=== PATIENT | male | born 1985 | race Caucasian/White ===

== ENCOUNTER 2018-05-24 08:44 | Emergency (ER) | payer SELFPAY ==
[2018-05-24] MEDS ORDERED: LIDOCAINE 1% MPF 5 ML VIAL ONE (09:05)
[2018-05-24] MEDS ORDERED: LIDOCAINE 1% W/EPI 1:100,000 MDV 50 ML VIAL ONE (09:08)
--- NOTE | 2018-05-24 09:36 | ER ---
Nurse's Notes [facility] Name: Jhonny Gore Age: 32 yrs Sex: Male : 1985 Arrival Date: 05/24/2018 Time: 08:46 Bed 14 Private MD: None, None Diagnosis: Laceration without foreign body of right forearm Presentation: 05/24 09:00 Presenting complaint: Patient states: cut his arm on a window last night around 930 pm, iw laceration noted to RFA, blood clot in place. Transition of care: patient was not received from another setting of care. Complicating Factors: There are no complicating factors for this patient. Onset of symptoms was May 23, 2018. Risk Assessment: Do you want to hurt yourself or someone else? Patient reports no desire to harm self or others. Initial Sepsis Screen: Does the patient meet any 2 criteria? No. Patient's initial sepsis screen is negative. Does the patient have a suspected source of infection? No. Patient's initial sepsis screen is negative. Care prior to arrival: None. 09:00 Method Of Arrival: Ambulatory iw 09:00 Acuity: OTF 4 iw Historical: - Allergies: 09:03 No Known Allergies; iw - Home Meds: 09:03 None [Active]; iw - PMHx: 09:03 None; iw - PSHx: 09:03 None; iw - Immunization history:: Last tetanus immunization: up to date. - Ebola Screening: : Patient negative for fever greater than or equal to 101.5 degrees Fahrenheit, and additional compatible Ebola Virus Disease symptoms Patient denies exposure to infectious person Patient denies travel to an Ebola-affected area in the 21 days before illness onset No symptoms or risks identified at this time. - Social history:: Smoking status: Patient uses tobacco products, smokes one pack cigarettes per day. Screenin:00 Abuse screen: Denies threats or abuse. Nutritional screening: No deficits noted. jb4 Tuberculosis screening: No symptoms or risk factors identified. Fall Risk None identified. Assessment: 09:00 General: Appears in no apparent distress. uncomfortable, Behavior is calm, cooperative, jb4 appropriate for age. Pain: Complains of pain in dorsal aspect of right forearm Pain does not radiate. Pain currently is 2 out of 10 on a pain scale. at worst was 8 out of 10 on a pain scale. Quality of pain is described as throbbing, Pain began 1 day ago. Neuro: Level of Consciousness is awake, alert, obeys commands, Oriented to person, place, time, situation. Cardiovascular: Capillary refill < 3 seconds in right fingers Patient's skin is warm and dry. Respiratory: Airway is patent Respiratory effort is even, unlabored, Respiratory pattern is regular, symmetrical. GI: No signs and/or symptoms were reported involving the gastrointestinal system. : No signs and/or symptoms were reported regarding the genitourinary system. EENT: No signs and/or symptoms were reported regarding the EENT system. Derm: Skin is pink, warm \T\ dry. Musculoskeletal: Circulation, motion, and sensation intact. Capillary refill < 3 seconds, in right. Injury Description: Laceration sustained to dorsal aspect of right forearm is 0.5 to 2.5 cm long, bleeding profusely. 09:30 Reassessment: Patient appears in no apparent distress at this time. Patient and/or jb4 family updated on plan of care and expected duration. Pain level reassessed. Patient is alert, oriented x 3, equal unlabored respirations, skin warm/dry/pink. Pt informed of need for sutures. Pt refused. provider notified. 10:36 Reassessment: pt was noted to be standing in ER driveway, bleeding, pt encouraged to iw have laceration repaired, pt now agrees. 10:50 Reassessment: pt walked out of ER room 12, actively bleeding, pt encouraged to come iw back inside to allow GLOVE STITCHER to suture arm, pt agrees. 11:00 Reassessment: Pt returned to ED, and agreed for wound closure. jb4 Vital Signs: 09:03 BP 142 / 98; Pulse 109; Resp 16; Temp 98.3; Pulse Ox 100% on R/A; Weight 68.04 kg; iw Height 6 ft. 1 in. (185.42 cm); Pain 6/10; 09:45 BP 137 / 98; Pulse 65; Resp 18; Pulse Ox 100% on R/A; jb4 11:17 BP 132 / 97; Pulse 102; Resp 18; Pulse Ox 100% on R/A; jb4 09:03 Body Mass Index 19.79 (68.04 kg, 185.42 cm) iw ED Course: 08:46 Patient arrived in ED. mr 08:46 None, None is Private Physician. mr 08:47 Chanel Hill [facility]C [facility] kb 08:47 Dennis Shaver MD is Attending Physician. kb 08:59 Alvaro Dias, RN is Primary Nurse. jb4 09:00 Patient has correct armband on for positive identification. Bed in low position. Side jb4 rails up X 1. Pulse ox on. NIBP on. 09:02 Triage completed. iw 09:03 Arm band placed on. iw 09:45 No provider procedures requiring assistance completed. Patient did not have IV access jb4 during this emergency room visit. 10:36 Primary Nurse role handed off by Alvaro Dias, RN iw 10:36 Chandni Mccormick, RN is Primary Nurse. iw 11:30 Assist provider with laceration repair on dorsal aspect of right forearm that was iw between 2.6 to 7.5 cm using giorgio. Set up tray. Performed by Chanel HAYNES Dressed with 4X4s, Julia, Patient tolerated well. Administered Medications: 09:33 Not Given (Patient Refused): Lidocaine (1 %) 1 vials 20 ml Infiltration once; to bedsidekb Outcome: 09:35 Discharge ordered by MD. kb 09:45 Discharged to home ambulatory. jb4 09:45 Condition: stable 09:45 Discharge instructions given to patient, Instructed on discharge instructions, follow up and referral plans. wound care, Demonstrated understanding of instructions, follow-up care, wound care. 09:51 Patient left the ED. jb4 11:30 Discharged to home ambulatory. iw 11:30 Condition: improved 11:30 Discharge instructions given to patient, Instructed on discharge instructions, follow up and referral plans. wound care, Demonstrated understanding of instructions, follow-up care, wound care. 11:31 Patient left the ED. iw Signatures: Chanel Hill FNP-C FNP-Don CastilloaSusan mr Chandni Mccormick, RN RN iw Alvaor Dias, RN RN jb4 Corrections: (The following items were deleted from the chart) 09:15 09:11 General: Appears jb4 jb4 09:48 09:00 Injury Description: Laceration sustained to dorsal aspect of right forearm is 0.5 jb4 to 2.5 cm long, bleeding moderately, jb4
--- NOTE | 2018-05-24 09:36 | EDPHYS ---
Physician Documentation [facility] Name: Jhonny Gore Age: 32 yrs Sex: Male : 1985 Arrival Date: 05/24/2018 Time: 08:46 Bed 14 Private MD: None, None ED Physician Dennis Shaver HPI: 05/24 09:25 This 32 yrs old Male presents to ER via Ambulatory with complaints of kb Laceration To Arm. 09:25 The patient has a laceration related to: cut on broken glass from window occurred at kb home, and there are no complicating factors. The injury was accidental. The laceration(s) is(are) located on the dorsal aspect of right forearm. Onset: The symptoms/episode began/occurred last night. Associated signs and symptoms: Pertinent positives: heavy bleeding, Pertinent negatives: deformity, dizziness, loss of consciousness, numbness distal to injury, suspected foreign body. The patient has not experienced similar symptoms in the past. The patient has not recently seen a physician. Historical: - Allergies: 09:03 No Known Allergies; iw - Home Meds: 09:03 None [Active]; iw - PMHx: 09:03 None; iw - PSHx: 09:03 None; iw - Immunization history:: Last tetanus immunization: up to date. - Ebola Screening: : Patient negative for fever greater than or equal to 101.5 degrees Fahrenheit, and additional compatible Ebola Virus Disease symptoms Patient denies exposure to infectious person Patient denies travel to an Ebola-affected area in the 21 days before illness onset No symptoms or risks identified at this time. - Social history:: Smoking status: Patient uses tobacco products, smokes one pack cigarettes per day. ROS: 09:26 Constitutional: Negative for fever, chills, and weight loss, Cardiovascular: Negative kb for chest pain, palpitations, and edema, Respiratory: Negative for shortness of breath, cough, wheezing, and pleuritic chest pain, Abdomen/GI: Negative for abdominal pain, nausea, vomiting, diarrhea, and constipation, MS/Extremity: Negative for injury and deformity, Neuro: Negative for headache, weakness, numbness, tingling, and seizure. 09:26 Skin: Positive for laceration(s), of the dorsal aspect of right forearm. Exam: 09:27 Constitutional: This is a well developed, well nourished patient who is awake, alert, kb and in no acute distress. Head/Face: Normocephalic, atraumatic. Chest/axilla: Normal chest wall appearance and motion. Nontender with no deformity. No lesions are appreciated. Cardiovascular: Regular rate and rhythm with a normal S1 and S2. No gallops, murmurs, or rubs. Normal PMI, no JVD. No pulse deficits. Respiratory: Lungs have equal breath sounds bilaterally, clear to auscultation and percussion. No rales, rhonchi or wheezes noted. No increased work of breathing, no retractions or nasal flaring. Abdomen/GI: Soft, non-tender, with normal bowel sounds. No distension or tympany. No guarding or rebound. No evidence of tenderness throughout. MS/ Extremity: Pulses equal, no cyanosis. Neurovascular intact. Full, normal range of motion. Neuro: Awake and alert, GCS 15, oriented to person, place, time, and situation. Cranial nerves II-XII grossly intact. Motor strength 5/5 in all extremities. Sensory grossly intact. Cerebellar exam normal. Normal gait. 09:27 Skin: injury, laceration(s), the wound is approximately 4 cm(s), of the dorsal aspect of right forearm, that can be described as clean, no foreign body, linear, without bleeding, bleeding controlled, large clot noted . Vital Signs: 09:03 BP 142 / 98; Pulse 109; Resp 16; Temp 98.3; Pulse Ox 100% on R/A; Weight 68.04 kg; iw Height 6 ft. 1 in. (185.42 cm); Pain 6/10; 09:45 BP 137 / 98; Pulse 65; Resp 18; Pulse Ox 100% on R/A; jb4 11:17 BP 132 / 97; Pulse 102; Resp 18; Pulse Ox 100% on R/A; jb4 09:03 Body Mass Index 19.79 (68.04 kg, 185.42 cm) iw Laceration: 11:21 Wound Repair of 4cm ( 1.6in ) subcutaneous laceration to dorsal aspect of right kb forearm. Linear shaped.. Distal neuro/vascular/tendon intact. Anesthesia: Wound infiltrated with 4 mls of 1% lidocaine w/ Epi. Wound prep: Extensive cleansing with betadine by me, Wound irrigation with saline by me. Skin closed with 5 gumaro Gumaro using staple gun. Dressed with Neosporin, 4x4's. Patient tolerated well. MDM: 08:47 Patient medically screened. kb 09:26 Data reviewed: vital signs, nurses notes. Data interpreted: Pulse oximetry: on room air kb is 100 %. Interpretation: normal. 09:33 Counseling: I had a detailed discussion with the patient and/or guardian regarding: the kb historical points, exam findings, and any diagnostic results supporting the discharge/admit diagnosis, the need for outpatient follow up, a family practitioner, to return to the emergency department if symptoms worsen or persist or if there are any questions or concerns that arise at home. ED course: Pt refuses lidocaine, cleaning of wound and sutures. States he thought it was worse than it is. Refuses tetanus shot as well. Pt states he doesn't want anything else done.. 10:49 ED course: Pt returned to ED. States he now wants the wound sutured. . kb 05/24 09:32 Order name: Dressing - Wound; Complete Time: 09:33 kb 05/24 09:32 Order name: Gloves, Sterile; Complete Time: 09:33 kb 05/24 09:32 Order name: Setup Suture Tray; Complete Time: 09:33 kb Administered Medications: 09:33 Not Given (Patient Refused): Lidocaine (1 %) 1 vials 20 ml Infiltration once; to bedsidekb Disposition: 05/24/18 09:35 Discharged to Home. Impression: Laceration without foreign body of right forearm. - Condition is Stable. - Discharge Instructions: Nonsutured Laceration Care, Laceration Care, Adult, [id number]. - Medication Reconciliation Form, Thank You Letter, Antibiotic Education, Prescription Opioid Use form. - Follow up: Emergency Department; When: As needed; Reason: Worsening of condition. Follow up: Private Physician; When: 2 - 3 days; Reason: Recheck today's complaints, Continuance of care, Re-evaluation by your physician. Addendum: 05/25/2018 16:01 Co-signature as Attending Physician, Dennis Shaver MD. g s Signatures: Chanel Hill, ASTRID-C ASTRID-CkChandni Elias RN RN iw Alvaro Dias RN RN jb4 Dennis Shaver MD MD Corrections: (The following items were deleted from the chart) 05/24 09:33 09:32 Sutures, Prolene ordered. kb kb 09:51 09:35 05/24/2018 09:35 Discharged to Home. Impression: Laceration without foreign body jb4 of right forearm. Condition is Stable. Forms are Medication Reconciliation Form, Thank You Letter, Antibiotic Education, Prescription Opioid Use. Follow up: Emergency Department; When: As needed; Reason: Worsening of condition. Follow up: Private Physician; When: 2 - 3 days; Reason: Recheck today's complaints, Continuance of care, Re-evaluation by your physician. kb 11:31 09:51 05/24/2018 09:35 Discharged to Home. Impression: Laceration without foreign body iw of right forearm. Condition is Stable. Discharge Instructions: Nonsutured Laceration Care, Laceration Care, Adult, [id number]. Forms are Medication Reconciliation Form, Thank You Letter, Antibiotic Education, Prescription Opioid Use. Follow up: Emergency Department; When: As needed; Reason: Worsening of condition. Follow up: Private Physician; When: 2 - 3 days; Reason: Recheck today's complaints, Continuance of care, Re-evaluation by your physician. jb4
[2018-05-24 09:55] VITALS: TEMP 98.3; O2SAT 100
[2018-05-24 11:37] VITALS: BP 132/97
== END 2018-05-24 11:31 | disposition home or self-care (01) ==
LOC: ER 08:44
PROC: 0JQG0ZZ Repair Right Lower Arm Subcutaneous Tissue and Fascia, Open Approach (ICD-10-PCS; principal; 2018-05-24)
DX: S51.811A Laceration without foreign body of right forearm, initial encounter (principal); F17.210 Nicotine dependence, cigarettes, uncomplicated; W25.XXXA Contact with sharp glass, initial encounter; Y93.9 Activity, unspecified; Y92.009 Unspecified place in unspecified non-institutional (private) residence as the place of occurrence of the external cause
CPT/HCPCS: 99283

== ENCOUNTER 2024-08-31 00:40 | Emergency (ER) | payer OTHER, SELFPAY ==
[2024-08-31] MEDS ORDERED: LIDOCAINE 2% W/EPI 1:200,000 MPF 20 ML VIAL IM ONE (00:47)
--- NOTE | 2024-08-31 02:07 | ER ---
Nurse's Notes [facility] Name: Jhonny Gore Age: 39 yrs Sex: Male : 1985 Arrival Date: 08/31/2024 Time: 00:40 Bed 15 Private MD: Diagnosis: Laceration right forearm Presentation: 08/31 00:45 Chief complaint: EMS states: PT BROUGHT IN VIA EMS FROM HALFWAY FOR LACERATION TO RT dd2 FOREARM. PER PT, HE PUNCHED THROUGH A WINDOW. Coronavirus screen: At this time, the client does not indicate any symptoms associated with coronavirus-19. Ebola Screen: No symptoms or risks identified at this time. Initial Sepsis Screen: Does the patient meet any 2 criteria? No. Patient's initial sepsis screen is negative. Does the patient have a suspected source of infection? No. Patient's initial sepsis screen is negative. Risk Assessment: Do you want to hurt yourself or someone else? Patient reports no desire to harm self or others. Onset of symptoms was August 30, 2024. Care prior to arrival:. 00:45 Method Of Arrival: EMS: [facility] dd2 00:45 Acuity: OTF 3 dd2 Triage Assessment: 00:57 General: Appears uncomfortable, Behavior is calm, cooperative, appropriate for age. dd2 Pain: Complains of pain in palmar aspect of right forearm Pain currently is 6 out of 10 on a pain scale. EENT: No deficits noted. No signs and/or symptoms were reported regarding the EENT system. Neuro: No deficits noted. Level of Consciousness is awake, alert, obeys commands, Oriented to person, place, time, situation, Appropriate for age. Cardiovascular: No deficits noted. Patient's skin is warm and dry. Respiratory: Airway is patent Respiratory effort is even, unlabored, Respiratory pattern is regular, symmetrical. GI: No deficits noted. No signs and/or symptoms were reported involving the gastrointestinal system. Abdomen is flat, non-distended. : No deficits noted. No signs and/or symptoms were reported regarding the genitourinary system. Derm: Skin is healthy with good turgor, LACERATION TO RT FOREARM Skin temperature is warm. Musculoskeletal: Circulation, motion, and sensation intact. Range of motion: intact in all extremities. Injury Description: Laceration sustained to palmar aspect of right forearm is full thickness, 2.6 to 7.5 cm long, bleeding moderately, moderate bleeding noted at this time. Historical: - Allergies: 00:57 No Known Allergies; dd2 - PMHx: 00:57 None; dd2 - PSHx: 00:57 None; dd2 - Immunization history:: Adult Immunizations unknown. - Infectious Disease History:: Denies. - Family history:: not pertinent. - Social history:: Smoking status: Reported history of juuling and/or vaping. Screenin:00 [facility] ED Fall Risk Assessment (Adult) History of falling in the last 3 months, dd2 including since admission No falls in past 3 months (0 pts) Confusion or Disorientation No (0 pts) Intoxicated or Sedated No (0 pts) Impaired Gait No (0 pts) Mobility Assist Device Used No (0 pt) Altered Elimination No (0 pt) Score/Fall Risk Level 0 - 2 = Low Risk Oriented to surroundings, Maintained a safe environment, Educated pt \T\ family on fall prevention, incl call for assistance when getting out of bed, Assessed \T\ reinforced patient's understanding of fall precautions, Hourly rounding (assess needs \T\ fall precautionary measures) done. Abuse screen: Denies threats or abuse. Nutritional screening: No deficits noted. Tuberculosis screening: No symptoms or risk factors identified. Assessment: 01:00 Reassessment: SEE TRIAGE ASSESSMENT FOR FULL ASSESSMENT. dd2 Vital Signs: 00:45 BP 136 / 104; Pulse 111; Resp 17; Temp 98.3; Pulse Ox 98% on R/A; Weight 65.77 kg; dd2 02:05 BP 142 / 100; Pulse 100; Resp 17; Temp 98.3; Pulse Ox 100% ; dd2 Krista Coma Score: 01:00 Eye Response: spontaneous(4). Motor Response: obeys commands(6). Verbal Response: dd2 oriented(5). Total: 15. ED Course: 00:41 Patient arrived in ED. vc1 00:41 Zeeshan Guaman MD is Attending Physician. rt 00:42 JENNIFER STUART, NATE is Primary Nurse. dd2 00:57 Triage completed. dd2 00:57 Arm band placed on right wrist. Patient placed in an exam room, on a stretcher, on dd2 pulse oximetry. 01:00 Patient has correct armband on for positive identification. Bed in low position. Call dd2 light in reach. Side rails up X2. PD AT BEDSIDE, PT IN CUSTODY. Client placed on continuous cardiac and pulse oximetry monitoring. NIBP monitoring applied. Door closed. Noise minimized. Warm blanket given. Pillow given. Verbal reassurance given. 01:00 Patient did not have IV access during this emergency room visit. Patient maintains SpO2 dd2 saturation greater than 95% on room air. 02:05 Provided Education on: WOUND CARE. dd2 02:05 Assist provider with laceration repair on right arm that was between 2.6 to 7.5 cm dd2 using sutures. Set up tray. Performed by Zeeshan Guaman MD Dressed with 4X4s, Kerlix, Patient tolerated well. 02:18 Wound care: to laceration located on palmar aspect of right forearm was cleaned with dd2 with SALINE , dressed with 4X4s, Kerlix, Patient tolerated well. Administered Medications: 01:55 Drug: Lidocaine-Epinephrine Infiltration -1%: (1:100,000) 5 ml 20 ml Infiltration once; dd2 to bedside {Note: ADMINISTERED BY MD LIBERTAD.} Volume: 20 ml; Route: Infiltration; Site: wound; 02:07 Follow up: Response: No adverse reaction dd2 Medication: 02:05 VIS not applicable for this client. dd2 Outcome: 02:06 Discharge ordered by . rt 02:19 Discharged to Law Enforcement dd2 02:19 Condition: stable 02:19 Discharge instructions given to patient, police, Instructed on discharge instructions, follow up and referral plans. wound care, Demonstrated understanding of instructions, follow-up care, wound care, 02:19 Patient left the ED. dd2 Signatures: Corrie Zhu RN RN vc1 Zeeshan Guaman MD MD rt JENNIFER STUART RN RN dd2
--- NOTE | 2024-08-31 02:07 | EDPHYS ---
Physician Documentation [facility] Name: Jhonny Gore Age: 39 yrs Sex: Male : 1985 Arrival Date: 08/31/2024 Time: 00:40 Bed 15 Private MD: ED Physician Zeeshan Guaman HPI: 08/31 00:50 This 39 yrs old Male presents to ER via Unassigned with complaints of laceration. rt 00:50 Patient presents to the ED with laceration to the right forearm. Patient states that he rt punched through a window. Does not believe that there is glass stuck in there. States the last tetanus immunization was 4 years ago. Denies other acute complaints at this time, symptoms are mild in severity, no other aggravating elevating factors.. Historical: - Allergies: 00:57 No Known Allergies; dd2 - PMHx: 00:57 None; dd2 - PSHx: 00:57 None; dd2 - Immunization history:: Adult Immunizations unknown. - Infectious Disease History:: Denies. - Family history:: not pertinent. - Social history:: Smoking status: Reported history of juuling and/or vaping. ROS: 00:50 Constitutional: Negative for fever, chills, and weight loss, Cardiovascular: Negative rt for chest pain, palpitations, and edema, Respiratory: Negative for shortness of breath, cough, wheezing, and pleuritic chest pain, Abdomen/GI: Negative for abdominal pain, nausea, vomiting, diarrhea, and constipation, 00:50 MS/extremity: Positive for laceration, Negative for deformity, Exam: 00:50 Constitutional: This is a well developed, well nourished patient who is awake, alert, rt and in no acute distress. Head/Face: Normocephalic, atraumatic. Chest/axilla: Normal chest wall appearance and motion. Nontender with no deformity. No lesions are appreciated. Cardiovascular: Regular rate and rhythm with a normal S1 and S2. No gallops, murmurs, or rubs. Normal PMI, no JVD. No pulse deficits. Respiratory: Lungs have equal breath sounds bilaterally, clear to auscultation and percussion. No rales, rhonchi or wheezes noted. No increased work of breathing, no retractions or nasal flaring. Abdomen/GI: Soft, non-tender, with normal bowel sounds. No distension or tympany. No guarding or rebound. No evidence of tenderness throughout. 00:50 Musculoskeletal/extremity: 3 cm laceration to the anterior aspect of the forearm, no foreign bodies identified, the fascia is not involved, no active bleeding. Pulses, motor, sensation are intact. Vital Signs: 00:45 BP 136 / 104; Pulse 111; Resp 17; Temp 98.3; Pulse Ox 98% on R/A; Weight 65.77 kg; dd2 02:05 BP 142 / 100; Pulse 100; Resp 17; Temp 98.3; Pulse Ox 100% ; dd2 Krista Coma Score: 01:00 Eye Response: spontaneous(4). Motor Response: obeys commands(6). Verbal Response: dd2 oriented(5). Total: 15. Laceration: 03:36 Wound Repair of 3cm ( 1.2in ) subcutaneous laceration to palmar aspect of right rt forearm. Linear shaped.. Distal neuro/vascular/tendon intact. Anesthesia: Local anesthetic administered with 2 mls of 1% lidocaine w/ Epi. Wound prep: Extensive cleansing by nurse. Skin closed with 6 3-0 Prolene using simple sutures and sterile technique. Dressed with 4x4's. Patient tolerated well. MDM: 00:42 Medical Screening Exam initiated rt 03:36 Differential Diagnosis Laceration. Data reviewed: vital signs, nurses notes. Test rt considered but Not performed: X-ray: Wound full explored, no foreign bodies identified, x-rays not indicated. Counseling: I had a detailed discussion with the patient and/or guardian regarding the historical points, exam findings, and any diagnostic results supporting the discharge/admit diagnosis, the need for outpatient follow up, to return to the emergency department if symptoms worsen or persist or if there are any questions or concerns that arise at home. Response to treatment: the patient's symptoms have markedly improved after treatment. 08/31 00:42 Order name: Dressing - Wound; Complete Time: 02:05 rt 08/31 00:42 Order name: Gloves, Sterile; Complete Time: :54 rt 08/31 00:42 Order name: Setup Suture Tray; Complete Time: :54 rt Administered Medications: 01:55 Drug: Lidocaine-Epinephrine Infiltration -1%: (1:100,000) 5 ml 20 ml Infiltration once; dd2 to bedside {Note: ADMINISTERED BY MD LIBERTAD.} Volume: 20 ml; Route: Infiltration; Site: wound; 02:07 Follow up: Response: No adverse reaction dd2 Disposition Summary: 08/31/24 02:06 Discharge Ordered Notes: Location: Home rt Problem: new rt Symptoms: have improved rt Condition: Stable rt Diagnosis - Laceration right forearm rt Followup: rt - With: Private Physician - When: 10 - 14 days - Reason: Staple/Suture removal Discharge Instructions: - Discharge Summary Sheet rt - Laceration Care, Adult rt Forms: - Medication Reconciliation Form rt - Antibiotic Education rt - Prescription Opioid Use rt - Patient Portal Instructions rt - Leadership Thank You Letter rt Signatures: Zeeshan Guaman MD MD rt JENNIFER STUART RN RN dd2
[2024-08-31 04:05] VITALS: TEMP 98.3
[2024-08-31 04:06] VITALS: BP 142/100; O2SAT 100
== END 2024-08-31 02:19 | disposition home or self-care (01) ==
LOC: ER 00:40
DX: S51.811A Laceration without foreign body of right forearm, initial encounter (principal)
CPT/HCPCS: 12032; 99284

== ENCOUNTER 2025-07-20 23:14 | Emergency (ER) | payer SELFPAY ==
[2025-07-20] MEDS ORDERED: CEPHALEXIN 250 MG CAP ONE (23:43)
[2025-07-20] MEDS ORDERED: LIDOCAINE 1% MPF 5 ML VIAL ONE (23:43)
--- NOTE | 2025-07-21 00:34 | ER ---
Nurse's Notes [facility] Name: Jhonny Gore Age: 39 yrs Sex: Male : 1985 Arrival Date: 07/20/2025 Time: 23:14 Bed 19 Private MD: Diagnosis: Laceration without foreign body of left hand, initial encounter Presentation: 07/20 23:24 Chief complaint: Patient states: ACCIDENTALLY STABBED LEFT HAND WITH KNIFE LAST NIGHT br2 WHILE TRYING TO OPEN A CAN OF DOG FOOD. AVULSION TO LEFT PALM OF HAND. THIS OCCURRED APPROX 24 HRS AGO. Coronavirus screen: Client denies travel out of the [place] in the last 14 days. Ebola Screen: Patient denies exposure to infectious person. Complicating Factors: The type of wound is a puncture. Initial Sepsis Screen: Does the patient meet any 2 criteria? No. Patient's initial sepsis screen is negative. Does the patient have a suspected source of infection? No. Patient's initial sepsis screen is negative. Risk Assessment: Do you want to hurt yourself or someone else? Patient reports no desire to harm self or others. Onset of symptoms was July 19, 2025 at 23:00. 23:24 Method Of Arrival: Ambulatory br2 23:24 Acuity: OTF 4 br2 Triage Assessment: 23:28 General: Appears uncomfortable, Behavior is calm, cooperative. Pain: Complains of pain br2 in Left first web space Pain currently is 5 out of 10 on a pain scale. Injury Description: Laceration sustained to Left first web space. Historical: - Allergies: 23:28 No Known Allergies; br2 - PSHx: 23:28 None; br2 - Immunization history:: Adult Immunizations up to date, Last tetanus immunization: < 5 years ago. - Infectious Disease History:: Denies. - Social history:: Smoking status: Patient reports the use of cigarette tobacco products, smokes one-half pack cigarettes per day, Patient uses alcohol, on a daily basis. Patient/guardian denies using street drugs. Screenin:30 [facility] ED Fall Risk Assessment (Adult) History of falling in the last 3 months, nh2 including since admission No falls in past 3 months (0 pts) Confusion or Disorientation No (0 pts) Intoxicated or Sedated No (0 pts) Impaired Gait No (0 pts) Mobility Assist Device Used No (0 pt) Altered Elimination No (0 pt) Score/Fall Risk Level 0 - 2 = Low Risk Oriented to surroundings, Maintained a safe environment, Educated pt \T\ family on fall prevention, incl call for assistance when getting out of bed, Assessed \T\ reinforced patient's understanding of fall precautions. Abuse screen: Denies threats or abuse. Denies injuries from another. Nutritional screening: No deficits noted. Tuberculosis screening: No symptoms or risk factors identified. Assessment: 23:30 General: Appears uncomfortable, Behavior is calm, cooperative, appropriate for age. nh2 Pain: Complains of pain in left hand Pain does not radiate. Pain currently is 5 out of 10 on a pain scale. Quality of pain is described as throbbing, Pain began 1 day ago. Is continuous. Neuro: Level of Consciousness is awake, alert, obeys commands, Oriented to person, place, time, situation, Appropriate for age. Cardiovascular: Denies chest pain, Patient's skin is warm and dry. Respiratory: Airway is patent Trachea midline Respiratory effort is even, unlabored, Respiratory pattern is regular, symmetrical. GI: Abdomen is round non-distended, Patient currently denies nausea, vomiting. : No signs and/or symptoms were reported regarding the genitourinary system. EENT: No signs and/or symptoms were reported regarding the EENT system. Derm: Skin is dry, Skin is pink, warm \T\ dry. Musculoskeletal: Circulation, motion, and sensation intact. Injury Description: Laceration sustained to left hand is 2.6 to 7.5 cm long, not bleeding, was sustained 12-24 hours ago. is bleeding no active bleeding noted. 07/21 00:15 Reassessment: Patient and/or family updated on plan of care and expected duration. Pain nh2 level reassessed. Patient is alert, oriented x 3, equal unlabored respirations, skin warm/dry/pink. 00:25 Reassessment: Provider at bedside performing laceration repair. nh2 Vital Signs: 07/20 23:24 BP 132 / 82; Pulse 107; Resp 18; Temp 97.2; Pulse Ox 99% ; Weight 68.04 kg; Height 6 br2 ft. 0 in. ; Pain 02/14; 23:49 BP 124 / 86; Pulse 95; Resp 18; Temp 97.7; Pulse Ox 100% ; nh2 07/21 00:26 BP 131 / 80; Pulse 83; Resp 18; Pulse Ox 98% ; nh2 07/20 23:24 Body Mass Index 20.34 (68.04 kg, 182.88 cm) br2 07/20 23:24 Pain Scale: Adult br2 ED Course: 07/20 23:17 Patient arrived in ED. gm2 23:28 Triage completed. br2 23:28 Modesta Valentin PA-C is PHCP. sb4 23:28 Abdi Jaime MD is Attending Physician. sb4 23:28 Arm band placed on right wrist. br2 23:30 Patient has correct armband on for positive identification. Bed in low position. Call nh2 light in reach. Side rails up X 1. Provided Education on: using call light for assistance. 23:38 Escobar Murillo Jr, RN is Primary Nurse. nh2 07/21 00:23 Patient did not have IV access during this emergency room visit. nh2 00:34 Abdi Jaime MD is Referral Physician. sb4 00:34 Referral Physician role handed off by Abdi Jaime MD sb4 00:44 Assist provider with laceration repair on palm of left hand that was between 2.6 to 7.5 nh2 cm using sutures. Set up tray. Performed by Modesta Valentin PA-C Dressed with 4X4s, Kerlix, Neosporin, Patient tolerated well. 00:44 Dressings: Kerlix X 1; left hand 4X4s X 1; left hand. nh2 Administered Medications: 07/20 23:48 Drug: Cephalexin PO 500 mg PO once Route: PO; nh2 07/21 00:08 Follow up: Response: No adverse reaction nh2 00:27 Drug: Lidocaine Infiltration (1 %) 5 ml 5 ml Infiltration once; to bedside {Note: nh2 administered by Modesta Valentin PA-C.} Volume: 5 ml; Route: Infiltration; Site: affected area; Medication: 07/20 23:49 VIS not applicable for this client. nh2 Outcome: 07/21 00:34 Discharge ordered by . sb4 00:45 Discharged to home ambulatory, with significant other, nh2 00:45 Condition: stable 00:45 Discharge instructions given to patient, Instructed on discharge instructions, follow up and referral plans. medication usage, Demonstrated understanding of instructions, follow-up care, medications, Prescriptions given X 1, 00:48 Patient left the ED. nh2 Signatures: Modesta Valentin PA-C PAHolland sb4 Loretta Burton gm2 Rosio Gallego RN RN br2 Escobar Murillo Jr, RN RN nh2 Corrections: (The following items were deleted from the chart) 00:48 00:44 Assist provider with laceration repair on palm of left hand that was between 2.6 nh2 to 7.5 cm using sutures. Set up tray. Performed by Escobar Murillo Jr RN Dressed with 4X4s, Kerlix, Neosporin, Patient tolerated well. nh2
--- NOTE | 2025-07-21 00:34 | EDPHYS ---
Physician Documentation [facility] Name: Jhonny Gore Age: 39 yrs Sex: Male : 1985 Arrival Date: 07/20/2025 Time: 23:14 Bed 19 Private MD: ED Physician Abdi Jaime HPI: 07/21 01:23 This 39 yrs old Male presents to ER via Ambulatory with complaints of Laceration To sb4 Hand. 01:23 The patient has a laceration The patient has a laceration occurred at home, The injury sb4 was accidental. The laceration(s) is(are) located on the Left first web space. Onset: The symptoms/episode began/occurred last night. Associated signs and symptoms: The patient has no apparent associated signs or symptoms. The patient has not experienced similar symptoms in the past. The patient has not recently seen a physician. Sustained a laceration to his left hand last night while trying to open dog food. Was not able to,. Because he did not have a ride. States his tetanus shot is up-to-date. Historical: - Allergies: 07/20 23:28 No Known Allergies; br2 - PSHx: 23:28 None; br2 - Immunization history:: Adult Immunizations up to date, Last tetanus immunization: < 5 years ago. - Infectious Disease History:: Denies. - Social history:: Smoking status: Patient reports the use of cigarette tobacco products, smokes one-half pack cigarettes per day, Patient uses alcohol, on a daily basis. Patient/guardian denies using street drugs. ROS: 07/21 01:23 Constitutional: Negative for fever, chills, and weight loss, sb4 Skin: Positive for laceration(s), of the Left first web space, All other systems are negative, Exam: 01:23 Constitutional: This is a well developed, well nourished patient who is awake, alert, sb4 and in no acute distress. Head/Face: Normocephalic, atraumatic. Eyes: Extra-ocular motions intact. Periorbital areas with no swelling, redness, or edema. ENT: Mucous membranes moist. Respiratory: No increased work of breathing, no retractions or nasal flaring. 01:23 Skin: injury, laceration(s), the wound is approximately 5 cm(s), with a depth of .5 cm(s), of the Left first web space, that can be described as no foreign body, irregular, without bleeding, Vital Signs: 07/20 23:24 BP 132 / 82; Pulse 107; Resp 18; Temp 97.2; Pulse Ox 99% ; Weight 68.04 kg; Height 6 br2 ft. 0 in. ; Pain 5/10; 23:49 BP 124 / 86; Pulse 95; Resp 18; Temp 97.7; Pulse Ox 100% ; nh2 07/21 00:26 BP 131 / 80; Pulse 83; Resp 18; Pulse Ox 98% ; nh2 07/20 23:24 Body Mass Index 20.34 (68.04 kg, 182.88 cm) br2 07/20 23:24 Pain Scale: Adult br2 Laceration: 01:23 Wound Repair of 5cm ( 2.0in ) subcutaneous laceration to Left first web space. sb4 Irregularly shaped.. Distal neuro/vascular/tendon intact. Anesthesia: Local anesthetic administered with 5 mls of 1% lidocaine. Wound prep: Extensive cleansing with betadine by nurse, Wound irrigation with saline by me, Wound explored, Copious irrigation. Skin closed with 3 4-0 Prolene using simple sutures and sterile technique. Dressed with non-adherent dressing. Patient tolerated well. MDM: 07/20 23:28 Medical Screening Exam initiated sb4 07/21 01:23 Differential diagnosis: superficial laceration, tendon injury, vascular injury. Data sb4 reviewed: vital signs, nurses notes, and as a result, I will discharge patient. Historians other than the Patient: Spouse/Significant Other: significant other. Counseling: I had a detailed discussion with the patient and/or guardian regarding the historical points, exam findings, and any diagnostic results supporting the discharge/admit diagnosis, the need for outpatient follow up, for suture removal in 1 week, to return to the emergency department if symptoms worsen or persist or if there are any questions or concerns that arise at home. 07/20 23:31 Order name: Wound Care: betadine bath; Complete Time: 23:48 sb4 07/21 00:34 Order name: Wound dressing; Complete Time: 00:46 sb4 Administered Medications: 07/20 23:48 Drug: Cephalexin PO 500 mg PO once Route: PO; nh2 07/21 00:08 Follow up: Response: No adverse reaction nh2 00:27 Drug: Lidocaine Infiltration (1 %) 5 ml 5 ml Infiltration once; to bedside {Note: nh2 administered by Modesta Valentin PA-C.} Volume: 5 ml; Route: Infiltration; Site: affected area; Disposition Summary: 07/21/25 00:34 Discharge Ordered Notes: Location: Home sb4 Problem: new sb4 Symptoms: have improved sb4 Condition: Stable sb4 Diagnosis - Laceration without foreign body of left hand, initial encounter sb4 Followup: sb4 - With: Private Physician - When: 1 week - Reason: Staple/Suture removal Discharge Instructions: - Discharge Summary Sheet sb4 - Laceration Care, Adult sb4 Forms: - Work release form sb4 - Family Work Release sb4 - Antibiotic Education sb4 - Patient Portal Instructions sb4 - Leadership Thank You Letter sb4 Prescriptions: - Cephalexin 500 mg Oral Capsule - take 1 capsule ORAL route every 12 hours for 10 days; 20 capsule; Refills: 0, sb4 Product Selection Permitted Addendum: 07/22/2025 07:49 Co-signature as Attending Physician, Abdi Jaime MD I agree with the assessment and c fuentes plan of care. Signatures: Abdi Jaime MD MD cha Brown, Sophia, PA-C PA-C sb4 Rosio Gallego, RN RN br2 Escobar Murillo Jr, RN RN nh2
[2025-07-21 10:59] VITALS: TEMP 97.7
[2025-07-21 11:01] VITALS: BP 131/80; O2SAT 98
== END 2025-07-21 00:48 | disposition home or self-care (01) ==
LOC: ER 23:14
PROC: 0HQGXZZ Repair Left Hand Skin, External Approach (ICD-10-PCS; principal; 2025-07-21)
DX: S61.412A Laceration without foreign body of left hand, initial encounter (principal)
CPT/HCPCS: 12042; 99284; J2003